=== PATIENT | female | born 1985 | race Two or more races ===

== ENCOUNTER 2018-01-16 10:45 | Observation (INO) | payer MEDICAID ==
[~2018-01-16] VITALS: Ht 154.9 cm; Wt 96.6 kg
[~2018-01-16 10:45] MED LIST: CEPH-91; CEPH500C; DOCU50CA2; HYDR-1421; PRE NATAL VIT
[2018-01-16] MEDS ORDERED: ACET1CAP14 PO (11:21)
[2018-01-16] MEDS ORDERED: FERR27TA2 PO (11:21)
[2018-01-16] MEDS ORDERED: LACTATED RINGER'S 1,000 ML IV ONE (11:36)
[2018-01-16] MEDS ORDERED: TERBUTALINE SULFATE 1 MG/ML 1ML VIAL SC ONE (11:43)
[2018-01-16] MEDS: TERBUTALINE SULFATE 1 MG/ML 1ML VIAL SC SCH ×3 (11:47→12:36)
[2018-01-16] MEDS ORDERED: NIFEdipine 10 MG CAP PO ONE (13:15)
[2018-01-16] MEDS ORDERED: NIFEdipine 10 MG CAP ONE (13:18)
== END 2018-01-16 14:45 | disposition home or self-care (01) | DRG 566 ==
LOC: LDRP 10:45
PROVIDERS: ADMIT Specialist; ATTEND Specialist
DX: O26.893 Other specified pregnancy related conditions, third trimester (principal); R10.2 Pelvic and perineal pain; O62.9 Abnormality of forces of labor, unspecified; M54.9 Dorsalgia, unspecified; R11.0 Nausea; Z3A.35 35 weeks gestation of pregnancy
CPT/HCPCS: 59025; 81002; 96360; 96361; 96372; G0378; J3105; 96366

== ENCOUNTER 2018-01-24 07:26 | Emergency (ER) | payer MEDICAID ==
[~2018-01-24] VITALS: Ht 152.4 cm; Wt 97.1 kg
[~2018-01-24 07:26] MED LIST changes: +ACET1CAP14 PO; -CEPH-91; -CEPH500C; -DOCU50CA2; +FERR27TA2 PO; -HYDR-1421
[2018-01-24 07:36] VITALS: BP 118/58
[2018-01-24] MEDS ORDERED: ACETAMINOPHEN 500 MG TAB PO ONE ×2 (07:52→08:00)
[2018-01-24] MEDS ORDERED: ACETAMINOPHEN 325 MG TAB PO ONE (08:00)
[2018-01-24] MEDS ORDERED: CYCLOBENZAPRINE HCL 10 MG TAB PO ONE (08:00)
== END 2018-01-24 08:42 | disposition home or self-care (01) ==
LOC: ER 07:26
DX: O9A.213 Injury, poisoning and certain other consequences of external causes complicating pregnancy, third trimester (principal); S76.011A Strain of muscle, fascia and tendon of right hip, initial encounter; M54.31 Sciatica, right side; Z88.1 Allergy status to other antibiotic agents; Z3A.37 37 weeks gestation of pregnancy; X50.1XXA Overexertion from prolonged static or awkward postures, initial encounter; Y93.02 Activity, running; Y99.8 Other external cause status; Y92.091 Bathroom in other non-institutional residence as the place of occurrence of the external cause

== ENCOUNTER 2018-02-02 17:35 | Observation (INO) | payer MEDICAID ==
[~2018-02-02] VITALS: Ht 154.9 cm; Wt 86.2 kg
[2018-02-02] MEDS ORDERED: NIF10C PO (17:56)
[2018-02-02] MEDS ORDERED: LACTATED RINGER'S 1,000 ML IV ONE (18:15)
[2018-02-02] MEDS ORDERED: NIFEdipine 10 MG CAP ONE (18:43)
[2018-02-02] MEDS ORDERED: NIFEdipine 10 MG CAP PO ONE (18:45)
== END 2018-02-02 19:20 | disposition home or self-care (01) | DRG 566 ==
LOC: LDRP 17:35
PROVIDERS: ADMIT Obstetrics & Gynecology; ATTEND Obstetrics & Gynecology
DX: O26.893 Other specified pregnancy related conditions, third trimester (principal); R42 Dizziness and giddiness; R10.30 Lower abdominal pain, unspecified; O21.2 Late vomiting of pregnancy; Z3A.38 38 weeks gestation of pregnancy
CPT/HCPCS: 59025; 81002; 96360; G0378; 96365; 96366

== ENCOUNTER 2018-02-07 04:09 | Inpatient (IN) | payer MEDICAID ==
[~2018-02-07] VITALS: Ht 152.4 cm; Wt 99.3 kg
[2018-02-07] VITALS (14 sets, daily range): BP systolic 86–116; BP diastolic 42–69
[~2018-02-07 04:09] MED LIST changes: +NIF10C PO
[2018-02-07 05:01] LABS: Basophils # (auto) 0.1 uL; Basophils % (auto) 0.6 % (0.0-2.0); Eosinophils # (auto) 0 uL; Eosinophils % (auto) 0.3 % (0.0-7.0); Hematocrit 32.7 % (36.0-46.0); Hemoglobin 10.6 g/dL (12.2-16.2); Lymphocytes # (auto) 1.3 uL; Lymphocytes % (auto) 10.6 % (10.0-50.0); Mean Corpuscular Hemoglobin 27.4 pg (28.0-32.0); Mean Corpuscular Hgb Conc. 32.3 g/dL (32.0-36.0); Monocytes # (auto) 0.5 uL; Monocytes % (auto) 3.8 % (0.0-12.0); Neutrophils # (auto) 10.1 uL; Neutrophils % (auto) 84.7 % (37.0-80.0); Platelet Count (auto) 229 10^3/uL (140-450); Red Blood Cells 3.85 10^6/uL (4.0-5.20); Red Cell Distribution Width 15.8 % (11.8-14.3); White Blood Cell 11.9 10^3/uL (4.4-10.8)
[2018-02-07 05:05] LABS: Urine Bacteria MANY /hpf (None Seen); Urine Blood Negative /uL (Negative); Urine Mucus FEW (None Seen); Urine Specific Gravity 1.014 (1.001-1.035); Urine WBC 27 /hpf (0 - 5)
[2018-02-07 05:15] LABS: INR 0.86 (0.9-1.15); Partial Thromboplastin Time 28.2 sec (23.78-33.04); Prothrombin Time 9.3 sec (9.27-12.13)
[2018-02-07 05:17] LABS: Albumin 2.5 g/dL (3.4-5.0); BUN/Creatinine Ratio 17.3; Bilirubin, Total 0.3 mg/dL (0.2-1.0); Calcium 9.1 mg/dL (8.5-10.1); Potassium 3.7 mmol/L (3.5-5.1); Total Protein 7.5 g/dL (6.4-8.2)
[2018-02-07] MEDS ORDERED: FERR27TA2 PO (05:38)
[2018-02-07] MEDS ORDERED: FERR-7 PO (05:38)
[2018-02-07] MEDS: LACTATED RINGER'S 1,000 ML IV SCH ×3 (06:00→15:40)
[2018-02-07] MEDS ORDERED: TETRACAINE 1% INJ 2 ML VIAL IJ ONE (07:05)
[2018-02-07] MEDS ORDERED: ceFAZolin 1GM VL ONE (07:54)
[2018-02-07] MEDS ORDERED: fentaNYL CITRATE 0 ML ONE (07:54)
[2018-02-07] MEDS ORDERED: OXYTOCIN 10 UNIT/ML 10ML VIAL ONE (07:54)
[2018-02-07] MEDS ORDERED: MIDAZOLAM HCL 1MG/1ML-2 ML VIAL ONE ×2 (07:54→08:48)
[2018-02-07] MEDS ORDERED: fentaNYL CITRATE 100 MCG/2 ML VL ONE (07:55)
[2018-02-07] MEDS ORDERED: ONDANSETRON HCL 4 MG/2 ML VIAL IV ONE (08:00)
[2018-02-07] MEDS ORDERED: KETOROLAC TROMETH 30 MG/ML 1ML VIAL IV ONE (08:00)
[2018-02-07] MEDS ORDERED: ePHEDrine SULFATE 50 MG/ML AMP IV PRN (08:00)
[2018-02-07] MEDS ORDERED: fentaNYL CITRATE 100 MCG/2 ML VL IV ONE (08:00)
[2018-02-07] MEDS ORDERED: HYDROmorphone HCL 2 MG/ML VL IV PRN (08:00)
[2018-02-07] MEDS ORDERED: MORPHINE SULFATE 8mg/ml INJ SDV IV ONE (08:00)
[2018-02-07] MEDS ORDERED: LABETALOL HCL 5 MG/ML 4ML SYRINGE IV PRN (08:00)
[2018-02-07] MEDS ORDERED: MIDAZOLAM HCL 1MG/1ML-2 ML VIAL IV PRN (08:00)
[2018-02-07] MEDS: LACT. RINGERS/OXYTOCIN 20UNITS 1,000 ML IV SCH ×3 (08:40→15:30)
[2018-02-07] MEDS ORDERED: ONDANSETRON HCL 4 MG/2 ML VIAL IV PRN (09:00)
[2018-02-07] MEDS ORDERED: KETOROLAC TROMETH 30 MG/ML 1ML VIAL IV PRN (09:00)
[2018-02-07] MEDS ORDERED: KETOROLAC TROMETH 30 MG/ML 1ML VIAL ONE (09:04)
[2018-02-07] MEDS: KETOROLAC TROMETH 30 MG/ML 1ML VIAL IV SCH ×3 (09:30→22:20)
[2018-02-07] MEDS ORDERED: MEPERIDINE HCL (50 MG/ML) 1 ML VIAL IV PRN (10:30)
[2018-02-07] MEDS ORDERED: PROMETHAZINE HCL 25 MG/ML 1ML IV PRN (10:30)
[2018-02-07] MEDS: ceFAZolin 1GM/100ML 50 ML IV SCH (15:43)
[2018-02-07 20:39] LABS: Basophils # (auto) 0 uL; Basophils % (auto) 0.3 % (0.0-2.0); Eosinophils # (auto) 0 uL; Eosinophils % (auto) 0.3 % (0.0-7.0); Hematocrit 27.2 % (36.0-46.0); Hemoglobin 8.9 g/dL (12.2-16.2); Lymphocytes # (auto) 1.4 uL; Lymphocytes % (auto) 13.5 % (10.0-50.0); Mean Corpuscular Hemoglobin 27.7 pg (28.0-32.0); Mean Corpuscular Hgb Conc. 32.6 g/dL (32.0-36.0); Monocytes # (auto) 0.5 uL; Monocytes % (auto) 5.3 % (0.0-12.0); Neutrophils # (auto) 8.2 uL; Neutrophils % (auto) 80.6 % (37.0-80.0); Platelet Count (auto) 170 10^3/uL (140-450); Red Cell Distribution Width 15.9 % (11.8-14.3); White Blood Cell 10.2 10^3/uL (4.4-10.8)
[2018-02-08] MEDS: ceFAZolin 1GM/100ML 50 ML IV SCH ×2 (00:03→08:00)
[2018-02-08 03:40] VITALS: BP 121/74
[2018-02-08] MEDS: KETOROLAC TROMETH 30 MG/ML 1ML VIAL IV SCH ×3 (04:03→12:00)
[2018-02-08 05:11] LABS: RPR Non Reactive (Non Reactive)
[2018-02-08] MEDS: LACTATED RINGER'S 1,000 ML IV SCH (06:00)
[2018-02-08 07:00] VITALS: BP 123/81
[2018-02-08] MEDS ORDERED: BISACODYL 10 MG RECT SUPP PR PRN (09:15)
[2018-02-08] MEDS: SIMETHICONE 80 MG CHEWABLE TABLET PO SCH ×3 (09:24→21:40)
[2018-02-08] MEDS: HYDROcodone-ACET 5/325MG TAB PO PRN ×2 (09:30→21:25)
[2018-02-08 09:56] LABS: Basophils # (auto) 0 uL; Basophils % (auto) 0.2 % (0.0-2.0); Eosinophils # (auto) 0 uL; Eosinophils % (auto) 0.4 % (0.0-7.0); Hematocrit 31.7 % (36.0-46.0); Lymphocytes % (auto) 10.8 % (10.0-50.0); Mean Corpuscular Hemoglobin 27.5 pg (28.0-32.0); Mean Corpuscular Hgb Conc. 31.5 g/dL (32.0-36.0); Mean Corpuscular Volume 87.4 fL (80.0-100.0); Monocytes # (auto) 0.4 uL; Monocytes % (auto) 4.1 % (0.0-12.0); Neutrophils # (auto) 7.8 uL; Neutrophils % (auto) 84.5 % (37.0-80.0); Nucleated Red Blood Cells % 0.2 %; Platelet Count (auto) 173 10^3/uL (140-450); Red Blood Cells 3.63 10^6/uL (4.0-5.20); Red Cell Distribution Width 16.6 % (11.8-14.3); White Blood Cell 9.3 10^3/uL (4.4-10.8)
[2018-02-08] MEDS: DOCUSATE CALCIUM 240 MG CAP PO SCH (10:00)
[2018-02-08] MEDS: DOCUSATE SOD 100 MG CAP PO SCH ×2 (10:00→21:40)
[2018-02-08 11:00] VITALS: BP 119/74
[2018-02-08] MEDS ORDERED: IBUPROFEN 800 MG TAB PO ONE (12:34)
[2018-02-08] MEDS: IBUPROFEN 800 MG TAB PO PRN (12:40)
[2018-02-08 15:00] VITALS: BP 116/68
[2018-02-08 19:00] VITALS: BP 112/67
[2018-02-08 22:35] VITALS: BP 124/66
[2018-02-09 03:10] VITALS: BP 117/84
[2018-02-09] MEDS: HYDROcodone-ACET 5/325MG TAB PO PRN ×2 (03:25→17:52)
[2018-02-09] MEDS: SIMETHICONE 80 MG CHEWABLE TABLET PO SCH ×4 (05:50→22:10)
[2018-02-09 06:55] VITALS: BP 115/76
[2018-02-09] MEDS: DOCUSATE CALCIUM 240 MG CAP PO SCH (10:21)
[2018-02-09] MEDS: DOCUSATE SOD 100 MG CAP PO SCH ×2 (10:21→22:10)
[2018-02-09] MEDS: IBUPROFEN 800 MG TAB PO PRN (10:22)
[2018-02-09 11:00] VITALS: BP 124/74
[2018-02-09 15:00] VITALS: BP 118/69
[2018-02-09 19:15] VITALS: BP 101/64
[2018-02-09 23:00] VITALS: BP 113/56
[2018-02-10] MEDS ORDERED: TETANUS-DIPTH-ACEL PERTUSSIS 0.5ML SYRG IM ONE (00:30)
[2018-02-10] MEDS: HYDROcodone-ACET 5/325MG TAB PO PRN (00:57)
[2018-02-10 03:00] VITALS: BP 103/59
[2018-02-10] MEDS: SIMETHICONE 80 MG CHEWABLE TABLET PO SCH (05:46)
[2018-02-10 06:50] VITALS: BP 110/63
[2018-02-10] MEDS: IBUPROFEN 800 MG TAB PO PRN (06:58)
[2018-02-10] MEDS: DOCUSATE CALCIUM 240 MG CAP PO SCH (10:30)
[2018-02-10] MEDS: DOCUSATE SOD 100 MG CAP PO SCH (10:30)
[2018-02-10 11:00] VITALS: BP 120/75
== END 2018-02-10 12:00 | disposition home or self-care (01) | DRG 540 ==
LOC: LDRP 04:09 → UNDODISIN 02-10 12:00
PROVIDERS: ADMIT Specialist; ATTEND Specialist
PROC: 10D00Z1 Extraction of Products of Conception, Low, Open Approach (ICD-10-PCS; principal; 2018-02-07 07:25)
DX: O34.211 Maternal care for low transverse scar from previous cesarean delivery (principal); Z68.41 Body mass index [BMI] 40.0-44.9, adult; O99.214 Obesity complicating childbirth; O99.344 Other mental disorders complicating childbirth; F41.9 Anxiety disorder, unspecified; E66.9 Obesity, unspecified; Z37.0 Single live birth; Z3A.39 39 weeks gestation of pregnancy; Z23 Encounter for immunization
CPT/HCPCS: 36415; 51702; 59025; 80053; 81001; 85025; 85610; 85730; 86592; 86850; 86900; 86901; 93970; 96365; 96366; J0690; J1885; J2250; J2590